=== PATIENT | female | born 1985 | race Two or more races ===

== ENCOUNTER → 2023-11-21 | Outpatient (CLI) | payer OTHER ==
[~2023-11-21] MED LIST: IOHEXOL 350 MG/ML 100ML IJ ONE
[2023-11-21 15:24] VITALS: BP 123/81; PULSE 70; RESP 16; O2SAT 96
[2023-11-21 15:36] VITALS: BP 155/95; PULSE 73; RESP 16; O2SAT 96
== END | disposition home or self-care (01) ==
LOC: Rad HDHVI 15:12
PROVIDERS: ATTEND Internal Medicine Cardiovascular Disease
DX: R07.89 Other chest pain (principal)
CPT/HCPCS: 71275; G0463; Q9967